=== PATIENT | female | born 2005 ===

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

== ENCOUNTER 2024-09-08 14:28 | Inpatient (IN) | payer BC ==
[2024-09-08] MEDS ORDERED: Carboprost Tromethamine 250 MCG/1 mL Vial IM PRN (14:37)
[2024-09-08] MEDS ORDERED: Butorphanol 2 MG/ML SDV IVPUSH PRN (14:37)
[2024-09-08] MEDS ORDERED: Sodium Chloride 0.9% 2.5 ML Syringe FLUSH PRN (14:37)
[2024-09-08] MEDS ORDERED: Water For Irrigation,Sterile 1,000 ML Container IRR PRN (14:37)
[2024-09-08] MEDS ORDERED: Sodium Chloride 0.9% 20 ML SDV IV PRN (14:37)
[2024-09-08] MEDS ORDERED: Sodium Chloride 0.9% 10 ML Syringe FLUSH PRN (14:37)
[2024-09-08] MEDS ORDERED: Lidocaine 1% 50 ML MDV INJECT PRN (14:37)
[2024-09-08] MEDS ORDERED: Misoprostol 200 MCG Tab PO PRN (14:37)
[2024-09-08] MEDS ORDERED: Methylergonovine 0.2 MG/1 ML Amp IM PRN (14:37)
[2024-09-08] MEDS: Lactated Ringers 1,000 ML IV SCH (14:44)
[2024-09-08] MEDS ORDERED: Oxytocin/0.9 % Sodium Chloride 30 UNIT/500 ML BAG IV SCH (14:45)
[2024-09-08] MEDS ORDERED: Oxytocin/0.9 % Sodium Chloride 30 UNIT/500 ML BAG ONE (14:48)
[2024-09-08] MEDS ORDERED: dexmedeTOMIDine HCl 200 MCG/2 ML SDV ONE (15:00)
[2024-09-08] MEDS: Ropivacaine HCl/PF 200 ML ONE (15:00)
[2024-09-08] MEDS ORDERED: Phenylephrine HCl In 0.9% NaCl 1 MG/10 ML Syringe ONE (15:00)
[2024-09-08] MEDS ORDERED: ePHEDrine 50 MG/ML SDV IVPUSH PRN (15:08)
[2024-09-08] MEDS ORDERED: Phenylephrine HCl In 0.9% NaCl 1 MG/10 ML Syringe IVPUSH PRN (15:08)
[2024-09-08 15:13] LABS: HEMATOCRIT 36.9 % (37.0-47.0); HEMOGLOBIN 12.4 g/dL (12.0-16.0); MEAN CORPUSCULAR HEMOGLOBIN 29.7 pg (28.0-32.0); MEAN CORPUSCULAR HGB CONC 33.6 g/dL (32.0-36.0); MEAN CORPUSCULAR VOLUME 88.5 fL (83.0-99.0); MEAN PLATELET VOLUME 11.7 fL (9.4-12.3); PLATELET COUNT,PLT 162 K/uL (150-400); RED BLOOD CELL COUNT 4.17 M/uL (4.10-5.30); WHITE BLOOD CELL COUNT,WBC 10.65 K/uL (3.9-11.3)
[2024-09-08] MEDS ORDERED: dexmedeTOMIDine HCl 200 MCG/2 ML SDV EPIDUR SCH (15:15)
[2024-09-08] MEDS ORDERED: Ropivacaine HCl/PF 400 MG in Premix Bag 1 BAG EPIDUR SCH (15:15)
[2024-09-08] MEDS ORDERED: oxyCODONE 5 MG Tab PO PRN (18:19)
[2024-09-08] MEDS ORDERED: Lanolin 100% Cream 7 GM Tube TOP PRN (18:19)
[2024-09-08 19:00] LABS: PH,UMBILICAL ARTERIAL 7.153 (7.18-7.38); PH,UMBILICAL VENOUS 7.197 (7.25-7.45)
[2024-09-08] MEDS: Acetaminophen 500 MG Tab PO PRN (21:07)
[2024-09-08] MEDS: Ibuprofen 800 MG Tab PO PRN (21:08)
[2024-09-08] MEDS: Witch Hazel Medicated Pads 40/Jar TOP PRN (21:08)
[2024-09-08] MEDS: Benzocaine/Menthol 20%-0.5% Spray 78 GM Cannister TOP PRN (21:08)
[2024-09-09 05:56] LABS: HEMATOCRIT 34.1 % (37.0-47.0); HEMOGLOBIN 11.4 g/dL (12.0-16.0)
[2024-09-09] MEDS: Docusate Sodium 100 MG Cap PO PRN (08:51)
== END 2024-09-09 22:30 | disposition home or self-care (01) | DRG 560 ==
LOC: MW.OBCHECK 14:28 → MW.OB 17:59 → OBSVTOIN 17:59 → MW.OB 21:45
PROVIDERS: ADMIT Obstetrics & Gynecology; ATTEND Obstetrics & Gynecology
PROC: 10E0XZZ Delivery of Products of Conception, External Approach (ICD-10-PCS; principal; 2024-09-08)
PROC: 10907ZC Drainage of Amniotic Fluid, Therapeutic from Products of Conception, Via Natural or Artificial Opening (ICD-10-PCS; 2024-09-08)
PROC: 3E0R3BZ Introduction of Anesthetic Agent into Spinal Canal, Percutaneous Approach (ICD-10-PCS; 2024-09-08)
DX: O48.0 Post-term pregnancy (principal); D62 Acute posthemorrhagic anemia; Z3A.40 40 weeks gestation of pregnancy; Z37.0 Single live birth; O90.81 Anemia of the puerperium; O36.5930 Maternal care for other known or suspected poor fetal growth, third trimester, not applicable or unspecified; Z79.899 Other long term (current) drug therapy
CPT/HCPCS: 36415; 51702; 59025; 59409; 82803; 85014; 85018; 85027; 86592; 86850; 86900; 86901; A9270-GY; J2371; J2590; J2795; J7120